=== PATIENT | male | born 1985 | race Caucasian/White ===

== ENCOUNTER 2017-01-17 06:38 | Emergency (ER) | payer SELFPAY ==
--- NOTE | ~2017-01-17 | CR109 ---
[facility] A Service [facility] RADIOLOGY TEXT RESULTS PATIENT: CINTHIA GRAHAM LOCATION: SED : 81 UNIT #: [id number] AGE: [address]: Omer Saucedo MD SEX: M ORDER DR: [id number] [address] [id number] MR#: [id number] #: [id number] NAME: CINTHIA GRAHAM : 1985 SEX: M STUDY DATE/TIME: 01/17/2017 6:55 UNIT: SED ROOM: STUDY DESCRIPTION: CR Finger 2 View 2nd Rt Attending Physician: Omer Saucedo M.D. Ordering Physician: Mike Knox M.D. Primary Care Physician: Primary Care Physician No MEDICAL IMAGING REPORT This report is preliminary unless electronic signature is present. EXAM Right second finger HISTORY Trauma this morning after smashing finger under cinder block. FINDINGS AP and lateral views of the right second finger were obtained. There is damage to the soft tissues of the distal end of the finger. Within that defect there are multiple radiodense foreign bodies measuring up to 2 mm in diameter. There are at least three present. No fracture is visible. IMPRESSION 1. Irregular radiodense objects noted distal to the bone of the second finger. The bone itself appears to be intact and I believe these probably represent debris from the injury. There is a soft tissue injury visible involving the distal portion of the nail bed in the tip of the finger. Dictated by... Florin Real M.D. THIS IS AN ELECTRONICALLY VERIFIED REPORT Florin Real M.D. at 01/17/2017 12:21 PM STAR/gwendolyn TD: 01/17/2017 08:18 JOB #: [id number] [facility] A Service [facility] RADIOLOGY TEXT RESULTS PATIENT: CINTHIA GRAHAM LOCATION: SED : [birth year] UNIT #: [id number] AGE: [address]: Omer Saucedo MD SEX: M ORDER DR: MEDICAL IMAGING REPORT Page 1 of 1
[~2017-01-17 06:38] MED LIST: AURODEX EAR DRO15 ML OT; OMNICEF PO; VICODIN 5/500 T1 TAB PO
[2017-01-17] MEDS ORDERED: NO MEDICATIONS (06:44)
== END 2017-01-17 07:50 | disposition home or self-care (01) ==
LOC: SED 06:38
DX: S61.210A Laceration without foreign body of right index finger without damage to nail, initial encounter (principal); W23.0XXA Caught, crushed, jammed, or pinched between moving objects, initial encounter; Y92.830 Public park as the place of occurrence of the external cause
CPT/HCPCS: 29130; 73140; 99283